=== PATIENT | male | born 1995 | race Caucasian/White ===

== ENCOUNTER 2019-01-03 09:45 | Emergency (ER) | payer OTHER, MEDICAID, SELFPAY ==
[2019-01-03 09:53] VITALS: BP 113/77; PULSE 99; RESP 20; TEMP 36.5; O2SAT 95; BMI 25.7
--- NOTE | 2019-01-03 11:17 | DI.RAD.S_ITS ---
PROCEDURE: XR THORACIC SPINE 3V INDICATIONS: back pain TECHNIQUE: 3 views of the thoracic spine were acquired. COMPARISON: None. FINDINGS: Bones: Moderate motion artifact is evident on the lateral view. The cervicothoracic junction is not well-seen on the swimmer's view related to oblique positioning. The vertebral body heights are within normal limits throughout the thoracic spine without evidence to suggest acute compression fracture. The bone mineralization is within normal limits. Mild degenerative changes of the lower thoracic spine are evident. Soft tissues: The imaged overlying soft tissues of the chest are within normal limits. IMPRESSION: 1. No acute fractures of the thoracic spine are evident. 2. Mild degenerative changes of the lower thoracic spine. Dictated by: Steve Gunter M.D. on 01/03/2019 at 11:02 Approved by: Steve Gunter M.D. on 01/03/2019 at 11:04
[2019-01-03] MEDS: LIDOCAINE PATCH 1 EACH ADH..PATCH TOP (11:23)
[2019-01-03] MEDS: KETOROLAC 60 MG/2 ML VIAL IM (11:23)
--- NOTE | 2019-01-03 11:54 | ED.BACK ---
HPI - Back Pain/Injury <AMIRAH Mcdermott-BC - Last Filed: 01/03/19 12:57> General Chief Complaint: Back Pain/Injury Stated Complaint: PAIN IN BACK Time Seen by Provider: 01/03/19 11:04 Source: patient Mode of arrival: ambulatory Limitations: no limitations History of Present Illness HPI Narrative: The patient is a 23-year-old male current marijuana smoker who denies any medical history and has history of orbit surgery who presents with a chief complaint of back pain. He states it started 2 days ago, and his upper back between his shoulder blades. He denies any falls or trauma. He states he is from out of town and sleeping at his grandparent's house. He took 1 500 mg Tylenol this morning for pain, otherwise has not taken anything. He denies any drug use. [place] prescription monitoring program database illustrates Suboxone prescription in in October 2018. He denies any fever nausea vomiting or diarrhea. He denies any cough or congestion. He has not followed up with PCP. He states it does not radiate anywhere, just stays in his upper back. The patient denies any numbness or tingling. Denies any incontinence of bowel or incontinence of bladder. Related Data Previous Rx's Medication Instructions Recorded ketorolac 10 mg PO TID PRN #20 tab 01/03/19 Allergies Allergy/AdvReac Type Severity Reaction Status Date / Time No Known Drug Allergies Allergy Verified 01/03/19 09:57 Review of Systems <BRIDGET McdermottBC - Last Filed: 01/03/19 12:57> Review of Systems GENERAL: Denies chills, fatigue, malaise, fever, sweats. HEENT: Denies sinus pain, ear pain, sore throat, difficulty swallowing, dizziness. RESPIRATORY: Denies dyspnea, cough, wheezing, hemoptysis, sputum. CARDIOVASCULAR: Denies chest pain, palpitations, orthopnea, edema, GASTROINTESTINAL: Denies nausea, vomiting, abdominal pain, diarrhea, constipation, melena. : Denies dysuria, frequency, incontinence, hematuria, urinary retention. MUSCULOSKELETAL: See HPI SKIN: Denies rash, skin lesions, or other NEUROLOGIC: Denies weakness, headache, numbness, change in speech, confusion, seizures, incoordination. PSYCHIATRIC: No concerning psychosocial issues. 12 point review of systems is negative except for those stated above PFSH <AZEEM Mcdermott - Last Filed: 01/03/19 12:57> Social History Smoking Status: Current every day smoker Social History Smoking Status: Current every day smoker Exam <AZEEM Mcdermott - Last Filed: 01/03/19 12:57> Narrative Exam Narrative: GENERAL: This is a well-nourished, well-developed patient, appears anxious and tearful. HEAD: Atraumatic. Normocephalic. No temporal or scalp tenderness. EYES: Pupils equal round and reactive. Extraocular motions intact. No scleral icterus. No injection or drainage. ENT: Nose without bleeding, purulent drainage or septal hematoma. Throat without erythema, tonsillar hypertrophy or exudate. Uvula midline. Airway patent. NECK: Trachea midline. No JVD or lymphadenopathy. Supple, nontender, no meningeal signs. CARDIOVASCULAR: Regular rate and rhythm RESPIRATORY: Clear to auscultation. Breath sounds equal bilaterally. No wheezes, rales, or rhonchi. No cough. No increased respiratory effort. No accessory muscle use. GASTROINTESTINAL: Abdomen soft, non-tender, nondistended. No hepato-splenomegaly, or palpable masses. No guarding. Active bowel sounds all 4 quadrants. EXTREMITIES: No clubbing, cyanosis, or edema. No joint tenderness, effusion, or edema noted. BACK: Pain to palpation of T-spine. Pain to palpation paraspinal muscles bilaterally of T-spine. No pain to palpation of C or L-spine. NEURO: AOx3. Stable gait. Using all extremities equally. No gross cranial nerve deficit. Clear speech. SKIN: No erythema rash or ecchymosis noted on back. Initial Vital Signs Initial Vital Signs: Vital Signs Temperature 97.7 F 01/03/19 09:53 Pulse Rate 99 H 01/03/19 09:53 Respiratory Rate 20 01/03/19 09:53 Blood Pressure 113/77 01/03/19 09:53 Pulse Oximetry 95 01/03/19 09:53 <Jammie Miller MD - Last Filed: 01/03/19 19:53> Initial Vital Signs Initial Vital Signs: Vital Signs Temperature 97.7 F 01/03/19 09:53 Pulse Rate 99 H 01/03/19 09:53 Respiratory Rate 20 01/03/19 09:53 Blood Pressure 113/77 01/03/19 09:53 Pulse Oximetry 95 01/03/19 09:53 Course <AZEEM Mcdermott - Last Filed: 01/03/19 12:57> Orders Ordered: ED Orders 01/03/19 11:17 XR thoracic spine 3V Stat Discontinued Medications Ketorolac Tromethamine (Toradol) 60 mg IM NOW ONE Stop: 01/03/19 11:16 Last Admin: 01/03/19 11:23 Dose: 60 mg Lidocaine (Lidoderm) 1 each TOP NOW ONE Stop: 01/03/19 11:16 Last Admin: 01/03/19 11:23 Dose: 1 each Reevaluation(s) Reevaluation #1: Patient is lying on stretcher, eyes close respirations even. In no apparent distress. Appears to be sleeping. Time: 11:56 Vital Signs - 8 hr 01/03/19 12:50 Pulse Rate 68 Respiratory Rate 12 Blood Pressure 126/72 Pulse Oximetry 99 <Jammie Miller MD - Last Filed: 01/03/19 19:53> Orders Ordered: ED Orders 01/03/19 11:17 XR thoracic spine 3V Stat Discontinued Medications Ketorolac Tromethamine (Toradol) 60 mg IM NOW ONE Stop: 01/03/19 11:16 Last Admin: 01/03/19 11:23 Dose: 60 mg Lidocaine (Lidoderm) 1 each TOP NOW ONE Stop: 01/03/19 11:16 Last Admin: 01/03/19 11:23 Dose: 1 each Vital Signs - 8 hr 01/03/19 12:50 Pulse Rate 68 Respiratory Rate 12 Blood Pressure 126/72 Pulse Oximetry 99 MDM - Back Pain/Injury <AZEEM Mcdermott - Last Filed: 01/03/19 12:57> Imaging Data t spine xray : Radiologist's impression: [address] [address] XRay Report Signed Patient: Peter Hester LMR#: [id number] : 1995Acct:[id number] Age/Sex: 23 / MDate of Service: 01/03/19 Loc: ED Accession Number: [id number] Procedure: XR thoracic spine 3V Ordering Provider: Anne Zaldivar MASTICATOR-BC PROCEDURE: XR THORACIC SPINE 3V INDICATIONS: back pain TECHNIQUE: 3 views of the thoracic spine were acquired. COMPARISON: None. FINDINGS: Bones: Moderate motion artifact is evident on the lateral view. The cervicothoracic junction is not well-seen on the swimmer's view related to oblique positioning. The vertebral body heights are within normal limits throughout the thoracic spine without evidence to suggest acute compression fracture. The bone mineralization is within normal limits. Mild degenerative changes of the lower thoracic spine are evident. Soft tissues: The imaged overlying soft tissues of the chest are within normal limits. IMPRESSION: 1. No acute fractures of the thoracic spine are evident. 2. Mild degenerative changes of the lower thoracic spine. Dictated by: Steve Gunter M.D. on 01/03/2019 at 11:02 Approved by: Steve Gunter M.D. on 01/03/2019 at 11:04 [facility] Narrative Medical decision making narrative: The patient is a 23-year-old male who presents with mid spinal back pain. He has a negative x-ray. He has no red flag symptoms of incontinence of bowel incontinence of bladder or saddle anesthesia. He felt much improved after single dose of Toradol, so I gave him a prescription of Toradol with strict instructions to not combine it with Aleve or ibuprofen or any other NSAIDs. I discussed at length following up with PCP in given contact information for the [facility] health water resource engineer. Discussed at length coming back to the ER for any acute concerns such as neurological changes. Patient states understanding and has no questions or concerns upon discharge. States understanding of return precautions. Discharge Plan Departure Patient Disposition: Home Clinical Impression: Thoracic back pain Qualifiers: Chronicity: acute Back pain laterality: bilateral Qualified Code(s): M54.6 - Pain in thoracic spine Discharge Date/Time: 01/03/19 12:52 Interventions: ED Discharge Assessment Last Done: 01/03/19 12:50 Instructions: DI for Back Strain or Sprain, DI for Thoracic Back Pain Activity Restrictions/Additional Instructions: Your x-rays show no acute etiology. You responded well in the emergency department to a single dose of anti-inflammatory. I have given you a prescription of this medication. Please start taking it 6:00 hours after your injection in the emergency department. Please do not combine this with any other NSAIDs such as ibuprofen or Aleve. You can also use an [id number] lidocaine patch or pain patch available at pharmacies. Please come back to emergency department for any acute concerns such as incontinence of bowel, incontinence of bladder or numbness of your groin. I have given you contact information for the [facility] water resource engineer, who can help you identify primary care provider in the area. Our [facility] walk-in clinic is also available for emergency department follow-up. Prescriptions: New ketorolac 10 mg tablet 10 mg PO TID PRN (Reason: pain) Qty: 20 RF: 0 Referrals: [facility] Health Resources [Outside]
--- NOTE | 2019-01-03 11:57 | ED_ITS ---
HPI - Back Pain/Injury <AMIRAH Mcdermott-BC - Last Filed: 01/03/19 12:57> General Chief Complaint: Back Pain/Injury Stated Complaint: PAIN IN BACK Time Seen by Provider: 01/03/19 11:04 Source: patient Mode of arrival: ambulatory Limitations: no limitations History of Present Illness HPI Narrative: The patient is a 23-year-old male current marijuana smoker who denies any medical history and has history of orbit surgery who presents with a chief complaint of back pain. He states it started 2 days ago, and his upper back between his shoulder blades. He denies any falls or trauma. He states he is from out of town and sleeping at his grandparent's house. He took 1 500 mg Tylenol this morning for pain, otherwise has not taken anything. He denies any drug use. [place] prescription monitoring program database illustrates Suboxone prescription in in October 2018. He denies any fever nausea vomiting or diarrhea. He denies any cough or congestion. He has not followed up with PCP. He states it does not radiate anywhere, just stays in his upper back. The patient denies any numbness or tingling. Denies any incontinence of bowel or incontinence of bladder. Related Data Previous Rx's Medication Instructions Recorded ketorolac 10 mg PO TID PRN #20 tab 01/03/19 Allergies Allergy/AdvReac Type Severity Reaction Status Date / Time No Known Drug Allergies Allergy Verified 01/03/19 09:57 Review of Systems <BRIDGET McdermottBC - Last Filed: 01/03/19 12:57> Review of Systems GENERAL: Denies chills, fatigue, malaise, fever, sweats. HEENT: Denies sinus pain, ear pain, sore throat, difficulty swallowing, dizziness. RESPIRATORY: Denies dyspnea, cough, wheezing, hemoptysis, sputum. CARDIOVASCULAR: Denies chest pain, palpitations, orthopnea, edema, GASTROINTESTINAL: Denies nausea, vomiting, abdominal pain, diarrhea, constipation, melena. : Denies dysuria, frequency, incontinence, hematuria, urinary retention. MUSCULOSKELETAL: See HPI SKIN: Denies rash, skin lesions, or other NEUROLOGIC: Denies weakness, headache, numbness, change in speech, confusion, seizures, incoordination. PSYCHIATRIC: No concerning psychosocial issues. 12 point review of systems is negative except for those stated above PFSH <AZEEM Mcdermott - Last Filed: 01/03/19 12:57> Social History Smoking Status: Current every day smoker Social History Smoking Status: Current every day smoker Exam <AZEEM Mcdermott - Last Filed: 01/03/19 12:57> Narrative Exam Narrative: GENERAL: This is a well-nourished, well-developed patient, appears anxious and tearful. HEAD: Atraumatic. Normocephalic. No temporal or scalp tenderness. EYES: Pupils equal round and reactive. Extraocular motions intact. No scleral icterus. No injection or drainage. ENT: Nose without bleeding, purulent drainage or septal hematoma. Throat without erythema, tonsillar hypertrophy or exudate. Uvula midline. Airway patent. NECK: Trachea midline. No JVD or lymphadenopathy. Supple, nontender, no meningeal signs. CARDIOVASCULAR: Regular rate and rhythm RESPIRATORY: Clear to auscultation. Breath sounds equal bilaterally. No wheezes, rales, or rhonchi. No cough. No increased respiratory effort. No accessory muscle use. GASTROINTESTINAL: Abdomen soft, non-tender, nondistended. No hepato- splenomegaly, or palpable masses. No guarding. Active bowel sounds all 4 quadrants. EXTREMITIES: No clubbing, cyanosis, or edema. No joint tenderness, effusion, or edema noted. BACK: Pain to palpation of T-spine. Pain to palpation paraspinal muscles bilaterally of T-spine. No pain to palpation of C or L-spine. NEURO: AOx3. Stable gait. Using all extremities equally. No gross cranial nerve deficit. Clear speech. SKIN: No erythema rash or ecchymosis noted on back. Initial Vital Signs Initial Vital Signs: Vital Signs Temperature 97.7 F 01/03/19 09:53 Pulse Rate 99 H 01/03/19 09:53 Respiratory Rate 20 01/03/19 09:53 Blood Pressure 113/77 01/03/19 09:53 Pulse Oximetry 95 01/03/19 09:53 <Jammie Miller MD - Last Filed: 01/03/19 19:53> Initial Vital Signs Initial Vital Signs: Vital Signs Temperature 97.7 F 01/03/19 09:53 Pulse Rate 99 H 01/03/19 09:53 Respiratory Rate 20 01/03/19 09:53 Blood Pressure 113/77 01/03/19 09:53 Pulse Oximetry 95 01/03/19 09:53 Course <AZEEM Mcdermott - Last Filed: 01/03/19 12:57> Orders Ordered: ED Orders 01/03/19 11:17 XR thoracic spine 3V Stat Discontinued Medications Ketorolac Tromethamine (Toradol) 60 mg IM NOW ONE Stop: 01/03/19 11:16 Last Admin: 01/03/19 11:23 Dose: 60 mg Lidocaine (Lidoderm) 1 each TOP NOW ONE Stop: 01/03/19 11:16 Last Admin: 01/03/19 11:23 Dose: 1 each Reevaluation(s) Reevaluation #1: Patient is lying on stretcher, eyes close respirations even. In no apparent distress. Appears to be sleeping. Time: 11:56 Vital Signs - 8 hr 01/03/19 12:50 Pulse Rate 68 Respiratory Rate 12 Blood Pressure 126/72 Pulse Oximetry 99 <Jammie Miller MD - Last Filed: 01/03/19 19:53> Orders Ordered: ED Orders 01/03/19 11:17 XR thoracic spine 3V Stat Discontinued Medications Ketorolac Tromethamine (Toradol) 60 mg IM NOW ONE Stop: 01/03/19 11:16 Last Admin: 01/03/19 11:23 Dose: 60 mg Lidocaine (Lidoderm) 1 each TOP NOW ONE Stop: 01/03/19 11:16 Last Admin: 01/03/19 11:23 Dose: 1 each Vital Signs - 8 hr 01/03/19 12:50 Pulse Rate 68 Respiratory Rate 12 Blood Pressure 126/72 Pulse Oximetry 99 MDM - Back Pain/Injury <AZEEM Mcdermott - Last Filed: 01/03/19 12:57> Imaging Data t spine xray : Radiologist's impression: [address] [address] XRay Report Signed Patient: Peter Hester LMR#: [id number] : 1995Acct:[id number] Age/Sex: 23 / MDate of Service: 01/03/19 Loc: ED Accession Number: [id number] Procedure: XR thoracic spine 3V Ordering Provider: Anne Zaldivar RESEARCH AND DEVELOPMENT CHEMIST-BC PROCEDURE: XR THORACIC SPINE 3V INDICATIONS: back pain TECHNIQUE: 3 views of the thoracic spine were acquired. COMPARISON: None. FINDINGS: Bones: Moderate motion artifact is evident on the lateral view. The cervicothoracic junction is not well-seen on the swimmer's view related to oblique positioning. The vertebral body heights are within normal limits throughout the thoracic spine without evidence to suggest acute compression fracture. The bone mineralization is within normal limits. Mild degenerative changes of the lower thoracic spine are evident. Soft tissues: The imaged overlying soft tissues of the chest are within normal limits. IMPRESSION: 1. No acute fractures of the thoracic spine are evident. 2. Mild degenerative changes of the lower thoracic spine. Dictated by: Steve Gunter M.D. on 01/03/2019 at 11:02 Approved by: Steve Gunter M.D. on 01/03/2019 at 11:04 [facility] Narrative Medical decision making narrative: The patient is a 23-year-old male who presents with mid spinal back pain. He has a negative x-ray. He has no red flag symptoms of incontinence of bowel incontinence of bladder or saddle anesthesia. He felt much improved after single dose of Toradol, so I gave him a prescription of Toradol with strict instructions to not combine it with Aleve or ibuprofen or any other NSAIDs. I discussed at length following up with PCP in given contact information for the [facility] health human resources recruiter. Discussed at length coming back to the ER for any acute concerns such as neurological changes. Patient states understanding and has no questions or concerns upon discharge. States understanding of return precautions. Discharge Plan Departure Patient Disposition: Home Clinical Impression: Thoracic back pain Qualifiers: Chronicity: acute Back pain laterality: bilateral Qualified Code(s): M54.6 - Pain in thoracic spine Discharge Date/Time: 01/03/19 12:52 Interventions: ED Discharge Assessment Last Done: 01/03/19 12:50 Instructions: DI for Back Strain or Sprain, DI for Thoracic Back Pain Activity Restrictions/Additional Instructions: Your x-rays show no acute etiology. You responded well in the emergency department to a single dose of anti- inflammatory. I have given you a prescription of this medication. Please start taking it 6:00 hours after your injection in the emergency department. Please do not combine this with any other NSAIDs such as ibuprofen or Aleve. You can also use an [id number] lidocaine patch or pain patch available at pharmacies. Please come back to emergency department for any acute concerns such as incontinence of bowel, incontinence of bladder or numbness of your groin. I have given you contact information for the [facility] human resources recruiter, who can help you identify primary care provider in the area. Our [facility] walk-in clinic is also available for emergency department follow-up. Prescriptions: New ketorolac 10 mg tablet 10 mg PO TID PRN (Reason: pain) Qty: 20 RF: 0 Referrals: [facility] Health Resources [Outside]
[2019-01-03 12:50] VITALS: BP 126/72; PULSE 68; RESP 12; O2SAT 99
== END 2019-01-03 12:52 | disposition home or self-care (01) ==
PROVIDERS: Emergency Provider Nurse Practitioner Family
DX: M54.6 Pain in thoracic spine (principal)
CPT/HCPCS: 72072; 96372; 99282; 99283; J1885